=== PATIENT | female | born 1930 | race Caucasian/White ===

== ENCOUNTER → 2020-07-12 | Outpatient (CLI) | payer MEDICARE, OTHER | LOC: WCC 13:58 | PROC: 0KBS0ZZ Excision of Right Lower Leg Muscle, Open Approach (ICD-10-PCS; principal; 2020-07-12) | DX: I96 Gangrene, not elsewhere classified (principal); L97.213 Non-pressure chronic ulcer of right calf with necrosis of muscle; C24.0 Malignant neoplasm of extrahepatic bile duct; J44.9 Chronic obstructive pulmonary disease, unspecified; E78.5 Hyperlipidemia, unspecified; M19.90 Unspecified osteoarthritis, unspecified site; Z79.899 Other long term (current) drug therapy | CPT/HCPCS: G0463 ==

== ENCOUNTER → 2020-07-19 | Outpatient (CLI) | payer MEDICARE, OTHER | LOC: WCC 14:12 | PROC: 0JBN0ZZ Excision of Right Lower Leg Subcutaneous Tissue and Fascia, Open Approach (ICD-10-PCS; principal; 2020-07-19) | DX: I96 Gangrene, not elsewhere classified (principal); L97.812 Non-pressure chronic ulcer of other part of right lower leg with fat layer exposed; C24.0 Malignant neoplasm of extrahepatic bile duct; J44.9 Chronic obstructive pulmonary disease, unspecified; H26.9 Unspecified cataract; M19.90 Unspecified osteoarthritis, unspecified site; Z79.899 Other long term (current) drug therapy ==

== ENCOUNTER → 2020-07-26 | Outpatient (CLI) | payer MEDICARE, OTHER | LOC: WCC 14:25 | PROC: 0KBS0ZZ Excision of Right Lower Leg Muscle, Open Approach (ICD-10-PCS; principal; 2020-07-26) | DX: I96 Gangrene, not elsewhere classified (principal); L97.213 Non-pressure chronic ulcer of right calf with necrosis of muscle; C24.0 Malignant neoplasm of extrahepatic bile duct; J44.9 Chronic obstructive pulmonary disease, unspecified; G25.81 Restless legs syndrome; E78.5 Hyperlipidemia, unspecified; H26.9 Unspecified cataract; M19.90 Unspecified osteoarthritis, unspecified site; Z79.899 Other long term (current) drug therapy ==

== ENCOUNTER → 2020-08-09 | Outpatient (CLI) | payer MEDICARE, OTHER | LOC: WCC 14:30 | DX: I87.2 Venous insufficiency (chronic) (peripheral) (principal); L97.222 Non-pressure chronic ulcer of left calf with fat layer exposed; J44.9 Chronic obstructive pulmonary disease, unspecified; C24.0 Malignant neoplasm of extrahepatic bile duct ==

== ENCOUNTER → 2020-08-30 | Outpatient (CLI) | payer MEDICARE, OTHER | LOC: WCC 14:30 | DX: L97.222 Non-pressure chronic ulcer of left calf with fat layer exposed (principal); C24.0 Malignant neoplasm of extrahepatic bile duct; M79.661 Pain in right lower leg; R60.1 Generalized edema; J44.9 Chronic obstructive pulmonary disease, unspecified; G25.81 Restless legs syndrome; E78.5 Hyperlipidemia, unspecified; Z79.899 Other long term (current) drug therapy | CPT/HCPCS: G0463 ==